=== PATIENT | female | born 2000 | race Caucasian/White ===

== ENCOUNTER 2021-04-27 09:09 | Emergency (ER) | payer SELFPAY ==
[2021-04-27] MEDS ORDERED: Ondansetron 4 MG Tab.DIS PO ONE (09:44)
--- NOTE | 2021-04-27 09:53 | EDM.PDOC ---
ED HPI GENERAL MEDICAL PROBLEM - General Chief Complaint: General Stated Complaint: POSSIBLE HEAT STROKE Time Seen by Provider: 04/27/21 09:35 Source of Information: Reports: Patient, RN. Denies: Old Records History Limitations: Reports: No Limitations - History of Present Illness INITIAL COMMENTS - FREE TEXT/NARRATIVE: 20 yo female from [place] presents with nausea and vomiting and light-headedness. Sx's began last night about 10 pm after being out in the sun all day. No diarrhea. Here with her mother. Onset: Gradual Onset Date: 04/26/21 Onset Time: 22:00 Duration: Hour(s): (12), Constant Location: Reports: Generalized Quality: Reports: Other (has some soreness of her abdominal muscles from vomiting and sunburn as her reported pain. ) Severity: Mild Improves with: Reports: None Worsens with: Reports: Other (continued vomiting.) Context: Reports: Other (See HPI) Associated Symptoms: Reports: Malaise, Nausea/Vomiting, Rash (sunburn), Other (light-headed). Denies: Fever/Chills Treatments CERTIFIED PEDIATRIC NURSE PRACTITIONER: Denies: Other (see below) (none) - Related Data Allergies Allergy/AdvReac Type Severity Reaction Status Date / Time amoxicillin Allergy Airway Verified 04/27/21 09:34 Tightness Home Meds: Home Meds Ondansetron [Zofran ODT] 4 mg PO Q6H PRN #6 tab.dis 04/27/21 [Rx] Past Medical History HEENT History: Reports: Impaired Vision Neurological History: Reports: Migraines, Other (See Below) Psychiatric History: Reports: Depression - Infectious Disease History Infectious Disease History: Reports: Chicken Pox, Novel Coronavirus - Past Surgical History Head Surgeries/Procedures: Reports: None HEENT Surgical History: Reports: None Neurological Surgical History: Reports: None Dermatological Surgical History: Reports: None Social & Family History - Tobacco Use Tobacco Use Status *Q: Never Tobacco User Second Hand Smoke Exposure: No - Caffeine Use Caffeine Use: Reports: Coffee, Energy Drinks - Recreational Drug Use Recreational Drug Use: No ED ROS GENERAL - Review of Systems Review Of Systems: See Below Constitutional: Reports: Malaise HEENT: Reports: No Symptoms Respiratory: Reports: No Symptoms Cardiovascular: Reports: Lightheadedness Endocrine: Reports: No Symptoms GI/Abdominal: Reports: Nausea, Vomiting. Denies: Diarrhea : Reports: No Symptoms Musculoskeletal: Reports: No Symptoms Skin: Reports: Erythema (sunburn) Neurological: Reports: No Symptoms Psychiatric: Reports: No Symptoms ED EXAM, GENERAL - Physical Exam Exam: See Below Exam Limited By: No Limitations General Appearance: Alert, WD/WN, Mild Distress Eye Exam: Bilateral Eye: Normal Inspection Ears: Normal External Exam, Normal Canal, Hearing Grossly Normal, Normal TMs Ear Exam: Bilateral Ear: Auricle Normal, Canal Normal Nose: Normal Inspection, No Blood Throat/Mouth: Normal Inspection, Normal Lips, Normal Oropharynx, Normal Voice, No Airway Compromise Head: Atraumatic, Normocephalic Neck: Normal Inspection Respiratory/Chest: No Respiratory Distress, Lungs Clear, Normal Breath Sounds, No Accessory Muscle Use Cardiovascular: Regular Rate, Rhythm, No Edema GI/Abdominal: Normal Bowel Sounds, Soft, Non-Tender, No Distention. No: Distended Extremities: Normal Inspection, Normal Range of Motion, Non-Tender, No Pedal Edema Neurological: Alert, Oriented, CN II-XII Intact, Normal Cognition, No Motor/Sensory Deficits Psychiatric: Normal Affect, Normal Mood Skin Exam: Warm, Dry, Intact, No Rash, Erythema (diffusely from sunburn) Course - Vital Signs Last Recorded V/S: Last Vital Signs Temp 35.9 C L 04/27/21 09:42 Pulse 68 04/27/21 10:26 Resp 16 04/27/21 09:35 BP 115/60 04/27/21 10:26 Pulse Ox 100 04/27/21 10:26 Orthostatic Blood Pressure [ 105/66 Standing] Orthostatic Blood Pressure [ 106/67 Sitting] Orthostatic Blood Pressure [ 100/59 Supine] - Orders/Labs/Meds Orders: Active Orders 24 hr Category Date Time Status Orthostatic Vital Signs [RC] ASDIRECTED Care 04/27/21 09:48 Active Lactated Ringers [Ringers, Lactated] 1,000 ml Med 04/27/21 10:20 Active IV BOLUS Medication Orders Lactated Ringer's (Ringers, Lactated) 1,000 mls @ 1,000 mls/hr IV BOLUS ONE Stop: 04/27/21 11:19 Last Admin: 04/27/21 10:38 Dose: 1,000 mls/hr Documented by: JULIEN Meds: Medications Generic Name Dose Route Start Last Admin Trade Name Freq PRN Reason Stop Dose Admin Lactated Ringer's 1,000 mls @ 1,000 mls/hr 04/27/21 10:20 04/27/21 10:38 Ringers, Lactated IV 04/27/21 11:19 1,000 mls/hr BOLUS ONE Administration Discontinued Medications Generic Name Dose Route Start Last Admin Trade Name Rina PRN Reason Stop Dose Admin Ketorolac Tromethamine 30 mg 04/27/21 10:21 04/27/21 10:34 Ketorolac 30 Mg/Ml Sdv IVPUSH 04/27/21 10:22 30 mg ONETIME ONE Administration Ondansetron HCl 4 mg 04/27/21 09:44 04/27/21 09:50 Ondansetron 4 Mg Tab.Dis PO 04/27/21 09:45 4 mg ONETIME ONE Administration Departure - Departure Time of Disposition: 11:45 Disposition: Home, Self-Care 01 Condition: Fair Clinical Impression: Sunburn, Mild dehydration Nausea and vomiting Qualifiers: Vomiting type: unspecified Vomiting Intractability: non-intractable Qualified Code(s): R11.2 - Nausea with vomiting, unspecified - Discharge Information *PRESCRIPTION DRUG MONITORING PROGRAM REVIEWED*: Not Applicable *COPY OF PRESCRIPTION DRUG MONITORING REPORT IN PATIENT KEN: Not Applicable Prescriptions: Ondansetron [Zofran ODT] 4 mg PO Q6H PRN #6 tab.dis PRN Reason: Nausea Referrals: PCP,None [Primary Care Provider] - Forms: ED Department Discharge Additional Instructions: Zofran as needed for nausea control. Stay out of the sun today. Aloe gel topically. Cool shower may help your burn. Ibuprofen 600 mg every 6 hrs with food. Recheck as needed. Drink ample fluids. Sepsis Event Note (ED) - Evaluation Sepsis Screening Result: No Definite Risk - Focused Exam Vital Signs: Vital Signs Temp Temp Pulse Resp BP Pulse Ox 04/27/21 10:26 68 115/60 100 04/27/21 09:42 35.9 C L 04/27/21 09:35 36.5 C 83 16 112/61 98 04/27/21 09:30 36.5 C 83 112/61 98 - My Orders Last 24 Hours: My Active Orders 04/27/21 09:48 Orthostatic Vital Signs [RC] ASDIRECTED 04/27/21 10:20 Lactated Ringers [Ringers, Lactated] 1,000 ml IV BOLUS - Assessment/Plan Last 24 Hours: My Active Orders 04/27/21 09:48 Orthostatic Vital Signs [RC] ASDIRECTED 04/27/21 10:20 Lactated Ringers [Ringers, Lactated] 1,000 ml IV BOLUS
[2021-04-27] MEDS ORDERED: Lactated Ringers 1,000 ML IV ONE (10:20)
[2021-04-27] MEDS ORDERED: Ketorolac 30 MG/ML SDV IVPUSH ONE (10:21)
== END 2021-04-27 11:45 | disposition home or self-care (01) ==
LOC: EDBD 09:09 → JP.ED 09:09
DX: E86.0 Dehydration (principal); R11.2 Nausea with vomiting, unspecified; L55.9 Sunburn, unspecified; Z88.0 Allergy status to penicillin; Z86.16 Personal history of COVID-19
CPT/HCPCS: 96374; 99283; A9270; J1885; J7120